=== PATIENT | female | born 1990 | race Two or more races ===

== ENCOUNTER 2024-05-14 07:09 | Emergency (ER) | payer MEDICAID, SELFPAY ==
[2024-05-14 07:33] VITALS: BP 114/66; PULSE 86; RESP 20; TEMP 37.2; O2SAT 96; BMI 35.0
--- NOTE | 2024-05-14 07:58 | EDNOTE_ITS ---
<Statement entered by Rosalia Guo MD - 05/15/24 12:05> As co-signing physician, I was present and available for consult prn. I concur with the plan and care as documented by the midlevel provider. Upper Respiratory Inf. RME/HPI General Chief Complaint: Extremity Injury, Lower Stated Complaint: BILATERAL KNEE, HEAD,& RIGHT ARM PAIN X LAST NIGHT Time Seen by Provider: 05/14/24 07:19 Arrival date/time: 05/14/24 07:09 33-year-old female with no significant medical problems presents to the emergency department today complaints of cough, congestion, body aches and joint pain patient report symptoms ongoing x 1 day patient reports no fever nausea or vomiting no headache dizziness or weakness Limitations: no limitations Related Data Previous Rx's ?Medication ?Instructions ?Recorded benzonatate 100 mg capsule 100 mg PO TID #14 caps 11/30 cyclobenzaprine 10 mg tablet 10 mg PO TID PRN muscle s pasm 10 05/14/24 days #30 tab-caps ibuprofen 800 mg tablet 800 mg PO TID PRN pain #30 t abs 05/14/24 Allergies Allergy/AdvReac Type Severity Reaction Status Date / Time No Known Allergies Allergy Verified 05/14/24 07:13 Review of Systems Review of Systems Systems Reviewed: All systems reviewed, normal except as documented Constitutional Constitutional: Reports system reviewed and no additional complaints, except as documented, Denies fever(s) and Denies headache(s) Eyes Eyes: Reports system reviewed and no additional complaints, except as documented and Denies blurry vision ENT Ears, Nose, Mouth, and Throat: Reports system reviewed and no additional complaints, except as documented, Denies headache(s), Reports nasal congestion and Reports nasal discharge Cardiovascular Cardiovascular: Reports system reviewed and no additional complaints, except as documented, Denies chest pain and Denies dyspnea Respiratory Respiratory: Reports system reviewed and no additional complaints, except as documented, Reports chest congestion, Reports cough and Denies dyspnea Gastrointestinal Gastrointestinal: Reports system reviewed and no additional complaints, except as documented and Denies abdominal pain Musculoskeletal Musculoskeletal: Reports system reviewed and no additional complaints, except as documented, Reports arthralgias, Denies deformity, Denies joint swelling, Denies numbness, Denies stiffness and Denies tingling Integumentary/Breasts Skin/Breast: Reports system reviewed and no additional complaints, except as documented and Denies rash Neurologic Neurologic: Reports system reviewed and no additional complaints, except as documented, Reports as per HPI, Denies headache(s), Denies numbness and Denies t ingling Past Medical History Social History SMOKING STATUS: Never smoker ED Exam General Limitations: Present no limitations General appearance: Present alert and in no apparent distress Head Head exam: Present atraumatic, normocephalic and normal inspection Eye Eye exam: Present normal appearance, PERRL and EOMI; Absent conjunctival injection ENT ENT exam: Present normal exam, normal oropharynx and mucous membranes moist Neck Neck exam: Present normal inspection, full ROM and trachea midline; Absent tenderness, meningismus or lymphadenopathy Chest Chest inspection: Present normal inspection and symmetric chest wall rise Respiratory Respiratory exam: Present normal lung sounds bilaterally; Absent respiratory distress Cardiovascular Cardiovascular exam: Present regular rate, normal rhythm and normal heart sounds Abdominal Exam Abdominal exam: Present soft and normal bowel sounds; Absent distention, tenderness, guarding, rebound or rigidity Extremities Exam Extremities exam: Present normal inspection, full ROM and normal capillary refill; Absent tenderness, pedal edema, joint swelling or calf tenderness Back Exam Back exam: Present normal inspection and full ROM Neurological Exam Neurological exam: Present alert, oriented X3, CN II-XII intact, normal gait, reflexes normal and other (No abnormality); Absent motor sensory deficit Psychiatric Psychiatric exam: Present normal affect and normal mood Skin Skin exam: Present warm, dry, intact and normal color Course Quality Measures none Orders Category Date Time Status Bedside Influenza A&B Antigen Test NOW Care 05/14/24 07:39 Active Ketorolac Inj [Toradol Inj] Med 05/14/24 07:38 Discontinued 60 mg IM X1 ONE Vital Signs Vital signs: Vital Signs Temperature 99.0 F 05/14/24 07:33 Pulse Rate 86 05/14/24 07:33 Respiratory Rate 20 05/14/24 07:33 Blood Pressure 114/66 05/14/24 07:33 Pulse Oximetry (%) 96 05/14/24 07:33 Oxygen Delivery Method Room Air 05/14/24 07:33 O2 saturation 96% on room air within normal limits Upper Respiratory Infection MDM Narrative MDM Narrative:: 33-year-old female with no significant medical problems presents to the emergency department today complaints of cough, congestion, body aches and joint pain patient report symptoms ongoing x 1 day patient reports no fever nausea or vomiting no headache dizziness or weakness Patient checked for the flu which came back negative I suspect patient symptoms are related to a viral syndrome Patient was given Toradol for pain discharged home with medication At this time there are no acute emergent findings Patient discharged home in no distress to follow-up with primary care doctor in the next 24 to 48 hours and for any worsening symptoms to return to the ER immediately Patient data External records reviewed:: [facility] previous records Clinical information provided by:: patient Social determinants that could affect healthcare access:: none Patient has the following chronic illnesses:: None How is presenting disease/condition affected by chronic disease/condition?: no chronic disease Evaluation data The following diagnostics were reviewed and interpreted by me:: lab results Lab and/or radiology exams considered but not ordered:: Labs obtained Interpretation Summary: By me Medications / Prescriptions Medications or Prescriptions considered but not ordered:: Given Medication administrations:: Medication Administration History Discontinued Medications Ketorolac Tromethamine (Ketorolac Inj 60 Mg/2 Ml Vial) 60 mg IM X1 ONE Stop: 05/14/24 07:39 Last Admin: 05/14/24 08:00 Dose: 60 mg Documented By: SM Given Consultations Consultation(s) initiated? (list below): No Diagnosis Upper Respiratory Differential Diagnosis: upper respiratory infection and viral infection Most likely diagnosis given after review of the tests above:: Viral infection, joint pain Admission Indicated Admission indicated?: not indicated Admission Request Was there a request for admission?: No Disposition Plan Disposition Plan: Discharge Discharge Attestation Discharge Attestation: The patient and all family members were given an opportunity to ask questions and understood the discharge instructions. Discharge instructions specifically effects, indications for sooner follow up or return to the emergency department, and the expected course of current diagnosis. Patient condition: Stable Discharge Plan Plan Patient Disposition: HOME (Self Care) Disposition Comment: Stable Prescriptions/Referrals Prescriptions/Med Rec: New cyclobenzaprine 10 mg tablet 10 mg PO TID PRN (Reason: muscle spasm) 10 Days Qty: 30 0RF ibuprofen 800 mg tablet 800 mg PO TID PRN (Reason: pain) Qty: 30 0RF benzonatate 100 mg capsule 100 mg PO TID Qty: 14 0RF Problem List Clinical Impression: Joint pain, Cough Patient/Caregiver Discharge Instructions Additional Instructions: Please follow up with your primary care doctor in the next 24-48hrs for any wors ening symptoms return here immediately Print Language: Yoruba Stand Alone Forms: Jane Award Info., Work/School Release, Patient Portal Info Letter PA/LOG [employer] Supervising Physician PA/LOG SKIDDER Supervising Physician: Dr. GUO
[2024-05-14] MEDS: KETOROLAC INJ 60 MG/2 ML VIAL IM (08:00)
== END 2024-05-14 08:12 | disposition home or self-care (01) ==
LOC: SERX 08:26
PROVIDERS: Emergency Provider Emergency Medicine
DX: R05.9 Cough, unspecified (principal); M25.562 Pain in left knee; M25.561 Pain in right knee
CPT/HCPCS: 96372; 99283; J1885

== ENCOUNTER 2024-05-16 21:47 | Emergency (ER) | payer MEDICAID, SELFPAY ==
[2024-05-16 22:23] VITALS: BP 122/64; PULSE 104; RESP 18; TEMP 36.8; O2SAT 98; BMI 28.2
[2024-05-17] MEDS: LACTULOSE SYRUP 20 GM/30 ML UDC 10 GM PO (00:13)
[2024-05-17] MEDS: MAGNESIUM CITRATE 300 ML BTL PO (00:15)
--- NOTE | 2024-05-17 05:03 | PD.EDRME ---
Rapid Medical Screening Exam [facility] Arrival date/time: 05/16/24 21:47 33F with no significant PMH presents to ED with 3 days of gen ab pain and constipation after taking [place] for leg pain. Patient denies N/V, dysuria, and vaginal bleeding. Chief Complaint: Abdominal Pain Time Seen by Provider: 05/17/24 00:05 Vital signs: Vital Signs Temperature 98.2 F 05/16/24 22:23 Pulse Rate 104 H 05/16/24 22:23 Respiratory Rate 18 05/16/24 22:23 Blood Pressure 122/64 05/16/24 22:23 Pulse Oximetry (%) 98 05/16/24 22:23 Oxygen Delivery Method Room Air 05/16/24 22:23
[2024-05-17 05:41] VITALS: BP 119/69; PULSE 88; RESP 18; TEMP 36.8; O2SAT 96
[2024-05-17 05:42] LABS: Collection Type, Urine Clean Catch
[2024-05-17 06:04] LABS: Basophils % (Auto) 0 % (0-2.5); Eosinophils # (Auto) 0.1 Thou/mm3 (0.0-0.5); Eosinophils % (Auto) 1 % (0-10); Hematocrit 38.5 % (36.0-46.0); Hemoglobin 12.7 g/dL (12.0-16.0); Immature Granulocytes % (Auto) 0 % (0-0); Immature Granulocytes Auto 0.03 Thou/mm3 (0.00-0.00); Lymphocytes # (Auto) 1.5 Thou/mm3 (1.0-4.8); Lymphocytes % (Auto) 15 % (10-50); Mean Corpuscular Hemoglobin 25.6 pg (25.0-35.0); Mean Corpuscular Volume 78 fL (80-100); Monocytes # (Auto) 0.7 Thou/mm3 (0.0-0.8); Monocytes % (Auto) 8 % (0-12); Neutrophils # (Auto) 7.4 Thou/mm3 (1.8-7.7); Neutrophils % (Auto) 76 % (37-80); Nucleated Red Blood Cell % 0 /100 WBC (0); Platelet Count 285 Thou/mm3 (140-440); RDW Standard Deviation 39.8 fL (36.4-46.3); Red Blood Count 4.96 Miln/mm3 (4.00-5.20); White Blood Count 9.7 Thou/mm3 (3.6-11.0)
[2024-05-17 06:19] LABS: Bacteria,Urine Rare; Bilirubin,Urine Negative (Negative); Blood,Urine Negative (Negative); Clarity,Urine Clear (Clear/Hazy); Color,Urine Yellow (Lt Yel-Yel); Glucose, Urine Negative (Negative); Hyaline Casts,Urine < 1 /hpf (0-1); Ketones,Urine Negative (Negative); Leukocyte Esterase,Urine Negative (Negative); Nitrite,Urine Negative (Negative); PH,Urine 5.5 (5.0-7.0); Protein,Urine Trace (Neg - Trace); RBC,Urine 3 /hpf (0-3); Specific Gravity,Urine 1.024 (1.001-1.035); Squamous Epithelial Cell,Urine 3 /hpf (0-5); Urobilinogen,Urine Negative mg/dL (0.0-1.0); WBC,Urine 3 /hpf (0-5)
[2024-05-17 06:20] LABS: HCG Qualitative,Urine Negative
[2024-05-17 06:22] LABS: Alanine Aminotransferase 34 U/L (10-49); Albumin, Serum 4.5 gm/dL (3.5-5.0); Albumin/Globulin Ratio 1.6 (1.2-2.2); Alkaline Phosphatase 73 U/L (46-116); Anion Gap 10 (7-16); Aspartate Amino Transferase 22 U/L (0-34); BUN/Creatinine Ratio 13 Ratio (12-20); Bilirubin,Total 0.6 mg/dL (0.3-1.2); Blood Urea Nitrogen 9 mg/dL (9-23); Calcium 9.3 mg/dL (8.3-10.6); Calcium (Corrected) 9.3 mg/dL (8.5-10.1); Carbon Dioxide 25.6 mMol/L (20.0-31.0); Chloride 105 mMol/L (98-107); Creatinine (Component) 0.7 mg/dL (0.6-1.3); Estimated Creatinine Clearance 122.6 mL/min (>60); Globulin 2.9 gm/dL (2.3-3.5); Glucose 121 mg/dL (74-106); Lipase 71 U/L (12-53); Osmolality,Calculated 280 (275-295); Potassium 3.8 mMol/L (3.4-5.1); Sodium 141 mMol/L (136-145); Total Protein 7.4 gm/dL (5.7-8.2); eGFR > 60 See Note
--- NOTE | 2024-05-17 07:08 | EDNOTE_ITS ---
ED Abdominal Pain RME/HPI General Chief Complaint: Abdominal Pain Stated complaint: ABD PAIN Time seen by provider: 05/17/24 00:05 Arrival date/time: 05/16/24 21:47 33-year-old female with no past medical history presents to the emergency room with a chief complaint of 3 days of lower abdominal pain and constipation. Patient states she has not had a bowel movement ever since beginning to take her [place] medication for her leg pain. Source: patient Mode of arrival: ambulatory Limitations: no limitations RME / HPI RME / HPI narrative: 05/16/24 21:47 33F with no significant PMH presents to ED with 3 days of gen ab pain and constipation after taking [place] for leg pain. Patient denies N/V, dysuria, and vaginal bleeding. Related Data Previous Rx's ?Medication ?Instructions ?Recorded benzonatate 100 mg capsule 100 mg PO TID #14 caps 11/30 cyclobenzaprine 10 mg tablet 10 mg PO TID PRN muscle s pasm 10 05/14/24 days #30 tab-caps ibuprofen 800 mg tablet 800 mg PO TID PRN pain #30 t abs 05/14/24 docusate sodium 100 mg capsule 100 mg PO QDAY #14 caps 05/17/24 (Colace) Allergies Allergy/AdvReac Type Severity Reaction Status Date / Time No Known Allergies Allergy Verified 05/16/24 21:47 Review of Systems Review of Systems Systems Reviewed: All systems reviewed, normal except as documented Constitutional Constitutional: Reports system reviewed and no additional complaints, except as documented, Denies fatigue, Denies fever(s), Denies headache(s) and Denies weakness Eyes Eyes: Reports system reviewed and no additional complaints, except as documented, Denies blurry vision and Denies change in vision ENT Ears, Nose, Mouth, and Throat: Reports system reviewed and no additional complaints, except as documented, Denies otalgia, Denies headache(s), Denies nasal congestion, Denies throat swelling and Denies vertigo Cardiovascular Cardiovascular: Reports system reviewed and no additional complaints, except as documented, Denies chest pain, Denies dyspnea and Denies dyspnea on exertion Respiratory Respiratory: Reports system reviewed and no additional complaints, except as documented, Denies chest congestion, Denies cough, Denies dyspnea, Denies dyspnea on exertion and Denies wheezing Gastrointestinal Gastrointestinal: Reports system reviewed and no additional complaints, except as documented, Reports abdominal pain, Reports constipation, Reports cramping, Reports nausea and Denies vomiting Genitourinary Genitourinary: Reports system reviewed and no additional complaints, except as documented Musculoskeletal Musculoskeletal: Reports system reviewed and no additional complaints, except as documented and Denies back pain Integumentary/Breasts Skin/Breast: Reports system reviewed and no additional complaints, except as documented and Denies wounds Neurologic Neurologic: Reports system reviewed and no additional complaints, except as documented, Denies confusion, Denies headache(s), Denies lack of coordination, Denies vertigo and Denies weakness Psychiatric Psychiatric: Reports system reviewed and no additional complaints, except as documented, Denies anxiety, Denies confusion, Denies depression, Denies paranoia, Denies suicidal ideation and Denies tactile hallucinations Endocrine Endocrine: Reports system reviewed and no additional complaints, except as documented and Denies fatigue Hematologic/Lymphatic Hematologic/Lymphatic: Reports system reviewed and no additional complaints, except as documented and Denies lymphadenopathy Allergic/Immunologic Allergic/Immunologic: Reports system reviewed and no additional complaints, except as documented, Denies throat swelling, Denies urticaria and Denies wheezing Past Medical History Social History SMOKING STATUS: Never smoker ED Exam General Limitations: Present no limitations General appearance: Present alert and in no apparent distress Head Head exam: Present atraumatic Eye Eye exam: Present normal appearance, PERRL and EOMI ENT ENT exam: Present normal exam, normal oropharynx and mucous membranes moist Neck Neck exam: Present normal inspection, full ROM and trachea midline Chest Chest inspection: Present normal inspection and symmetric chest wall rise Respiratory Respiratory exam: Present normal lung sounds bilaterally Cardiovascular Cardiovascular exam: Present regular rate, normal rhythm and normal heart sounds Abdominal Exam Abdominal exam: Present soft and normal bowel sounds; Absent distention, tenderness, guarding or rebound Abdominal tenderness: Absent epigastrium or suprapubic Extremities Exam Extremities exam: Present normal inspection and full ROM Back Exam Back exam: Present normal inspection and full ROM Neurological Exam Neurological exam: Present alert, oriented X3 and CN II-XII intact Psychiatric Psychiatric exam: Present normal affect and normal mood Skin Skin exam: Present warm, dry, intact and normal color Course Quality Measures none Orders Category Date Time Status Enema Administration NOW Care 05/17/24 02:15 Active XR abdomen 1V Stat Exams 05/17/24 05:02 Stop Req CBC Stat Lab 05/17/24 05:50 Completed CMP [Comprehensive Metabolic Panel] Stat Lab 05/17/24 05:50 Completed HCG Qualitative,Urine Stat Lab 05/17/24 05:36 Completed Lipase Stat Lab 05/17/24 05:50 Completed Urinalysis Stat Lab 05/17/24 05:36 Completed Lactulose Syrup [Enulose Syrup] Med 05/17/24 00:05 Discontinued 10 gm PO X1 ONE Magnesium Citrate Liqd [Citrate of Magnesia Liqd] Med 05/17/24 00:05 Discontinued 300 ml PO X1 ONE Vital Signs Vital signs: Vital Signs Temperature 98.2 F 05/16/24 22:23 Pulse Rate 104 H 05/16/24 22:23 Respiratory Rate 18 05/16/24 22:23 Blood Pressure 122/64 05/16/24 22:23 Pulse Oximetry (%) 98 05/16/24 22:23 Oxygen Delivery Method Room Air 05/16/24 22:23 O2 saturation 98% within normal limits Abdominal Pain MDM MDM Narrative MDM Narrative:: 33-year-old female with no past medical history presents to the emergency room with a chief complaint of 3 days of lower abdominal pain and constipation. Patient states she has not had a bowel movement ever since beginning to take her [place] medication for her leg pain. Patient is hemodynamically stable and in no apparent distress. During my reevaluation the patient states she had a large bowel movement already and her symptoms have significantly improved. Patient denies any abdominal pain and states she would like to go home. Patient received an enema earlier around 2 AM. Patient was discharged and educated to follow-up with primary care provider in the next 24 to 48 hours and return to the emergency room for any evidence of worsening signs or symptoms Patient data External records reviewed:: [facility] previous records Clinical information provided by:: patient Social determinants that could affect healthcare access:: none Patient has the following chronic illnesses:: No chronic illness How is presenting disease/condition affected by chronic disease/condition?: no chronic disease Evaluation data The following diagnostics were reviewed and interpreted by me:: lab results and radiology exam(s) Lab and/or radiology exams considered but not ordered:: Labs and radiology exams considered and ordered Interpretation Summary: N/A Medications / Prescriptions Medications or Prescriptions considered but not ordered:: Medication given Medication administrations:: Medication Administration History Discontinued Medications Lactulose (Lactulose Syrup 20 Gm/30 Ml Udc) 10 gm PO X1 ONE; Protocol Stop: 05/17/24 00:06 Last Admin: 05/17/24 00:13 Dose: 10 gm Documented By: CVL Magnesium Citrate (Magnesium Citrate 300 Ml Btl) 300 ml PO X1 ONE Stop: 05/17/24 00:06 Last Admin: 05/17/24 00:15 Dose: 300 ml Documented By: CVL Medication given Consultations Consultation(s) initiated? (list below): No Diagnosis Differential diagnosis abdominal pain: abdominal pain, acute appendicitis, constipation and small bowel obstruction Most likely diagnosis given after review of the tests above:: Constipation Admission Indicated Admission indicated?: not indicated Admission Request Was there a request for admission?: No Disposition Plan Disposition Plan: Discharge Discharge Attestation Discharge Attestation: The patient and all family members were given an opportunity to ask questions and understood the discharge instructions. Discharge instructions specifically effects, indications for sooner follow up or return to the emergency department, and the expected course of current diagnosis. Patient condition: Stable Discharge Plan Plan Patient Disposition: HOME (Self Care) Disposition Comment: Stable Prescriptions/Referrals Prescriptions/Med Rec: New docusate sodium [Colace] 100 mg capsule 100 mg PO QDAY Qty: 14 0RF No Action cyclobenzaprine 10 mg tablet 10 mg PO TID PRN (Reason: muscle spasm) 10 Days Qty: 30 0RF ibuprofen 800 mg tablet 800 mg PO TID PRN (Reason: pain) Qty: 30 0RF benzonatate 100 mg capsule 100 mg PO TID Qty: 14 0RF Referrals: No Primary/Family,Physician [Primary Care Provider] - In 1 week Problem List Clinical Impression: Constipation due to pain medication Patient/Caregiver Discharge Instructions Education Materials: Eating a High-Fiber Diet, ED Constipation (Adult) Additional Instructions: Por favor, consulte con dickson m?dico de cabecera en las pr?ximas 24 a 48 horas. El medicamento fue enviado a [facility]on farm[employer]; rec?jalo y t?song seg?n lo indicado. Ante cualquier signo de empeoramiento de los signos o s?ntomas, acuda inmediatamente a urgencias. Print Language: Yakut Stand Alone Forms: Jane Award Info., Work/School Release, Patient Portal Info Letter PA/[employer] Supervising Physician CARLI/[employer] Supervising Physician: Dr. VALLADARES
[2024-05-17 07:13] VITALS: RESP 18
== END 2024-05-17 07:14 | disposition home or self-care (01) ==
PROVIDERS: Physician Assistant; Emergency Provider Emergency Medicine
DX: K59.03 Drug induced constipation (principal)
CPT/HCPCS: 36415; 80053; 81001; 81025; 83690; 85025; 99283; A9270